=== PATIENT | female | born 1970 | race Caucasian/White ===

== ENCOUNTER 2016-11-03 17:35 | Emergency (ER) | payer MEDICAID ==
[2016-11-03] MEDS ORDERED: Phytonadione 10 MG/ML AMP ONE (21:25)
== END 2016-11-03 21:53 | disposition home or self-care (01) ==
LOC: ER 17:35
DX: R04.0 Epistaxis (principal)
CPT/HCPCS: 36415; 80053; 85025; 85610; 85730; 96372